=== PATIENT | male | born 1955 | race Caucasian/White ===

== ENCOUNTER 2017-11-14 12:41 | Inpatient (IN) | payer MEDICAID, OTHER ==
[~2017-11-14] VITALS: Ht 172.7 cm; Wt 62.6 kg
[2017-11-14] VITALS (7 sets, daily range): BP systolic 115–130; BP diastolic 65–76
[2017-11-14] MEDS ORDERED: SODIUM CHLORIDE 0.9% 500 ML IV ONE (14:25)
[2017-11-14 16:14] LABS: HEMATOCRIT. 21.7 % (42.0-52.0); HEMOGLOBIN. 7.1 g/dL (14.0-18.0); LYMPHOCYTES % 24.4 % (20.0-50.0); MEAN CORPUSCULAR HEMOGLOBIN 26.5 pg (28.0-32.0); MEAN CORPUSCULAR VOLUME 81.2 fL (80.0-94.0); MEAN PLATELET VOLUME 6.9 fl (7.4-10.4); MONOCYTES % 7.6 % (2.0-8.0); PLATELET 242 x1000/uL (130-400); RED BLOOD CELL COUNT 2.68 mill/uL (4.7-6.1); RED CELL DISTRIBUTION WIDTH 17.1 % (11.6-14.6)
[2017-11-14 16:19] LABS: INR 1.1; PARTIAL THROMBOPLASTIN TIME 34.5 sec (23.4-31.0); PROTHROMBIN TIME 11.5 sec (9.4-11.6)
[2017-11-14 16:33] LABS: CHLORIDE 96 mEq/L (98-107)
[2017-11-14] MEDS ORDERED: ACETAMINOPHEN 325MG TABLET PO PRN (17:45)
[2017-11-14] MEDS ORDERED: DOCUSATE SODIUM 100MG CAPSULE PO PRN (17:45)
[2017-11-14] MEDS ORDERED: IPRATROPIUM/ALBUTEROL 0.5-3(2.5)MG/3ML NEB INH PRN (17:45)
[2017-11-14] MEDS ORDERED: CLONIDINE 0.1MG TABLET PO PRN (17:45)
[2017-11-14] MEDS ORDERED: ONDANSETRON HCL 4MG/2ML VIAL IV PRN (17:45)
[2017-11-14] MEDS ORDERED: EPOETIN ALFA 10000UNITS/ML VIAL SUBCUT NR (18:00)
[2017-11-14] MEDS ORDERED: ONDANSETRON 4MG ODT PO PRN (18:45)
[2017-11-14] MEDS: HYDROCODONE/ACETAMINOPHEN 5/325MG TABLET PO PRN (19:59)
[2017-11-14 21:25] LABS: PHOSPHORUS 6.3 mg/dL (2.5-4.9)
[2017-11-14 23:47] LABS: CREATINE KINASE 62 IU/L (39-308)
[2017-11-14 23:49] LABS: CREATINE KINASE MB FRACTION 1.2 ng/mL (0.5-3.6)
[2017-11-15] MEDS: HYDROCODONE/ACETAMINOPHEN 5/325MG TABLET PO PRN ×4 (00:20→17:43)
[2017-11-15 04:00] VITALS: BP 118/71
[2017-11-15 04:19] LABS: *AMPHETAMINES SCREEN URINE NEGATIVE (NEGATIVE); *BENZODIAZEPINES SCREEN URINE NEGATIVE (NEGATIVE); *COCAINE SCREEN URINE PRESUMTIVE POSITIVE (NEGATIVE)
[2017-11-15 04:20] LABS: CANNABINOID URINE SCREEN NEGATIVE (NEGATIVE); METHADONE URINE SCREEN NEGATIVE (NEGATIVE); OPIATES URINE SCREEN PRESUMTIVE POSITIVE (NEGATIVE); PHENCYCLIDINE URINE SCREEN NEGATIVE (NEGATIVE)
[2017-11-15 04:22] LABS: *BARBITURATES SCREEN URINE NEGATIVE (NEGATIVE)
[2017-11-15 08:00] VITALS: BP 128/74
[2017-11-15] MEDS: SEVELAMER CARBONATE 800 MG TABLET PO SCH ×4 (08:26→17:45)
[2017-11-15 08:58] LABS: BASOPHILS % 1.6 % (0.0-2.0); EOSINOPHILS % 2.6 % (0.0-5.0); HEMATOCRIT. 27.1 % (42.0-52.0); LYMPHOCYTES % 19.8 % (20.0-50.0); MEAN CORPUSCULAR HEMOGLOBIN 26.7 pg (28.0-32.0); MEAN CORPUSCULAR VOLUME 80.1 fL (80.0-94.0); MEAN PLATELET VOLUME 6.7 fl (7.4-10.4); MONOCYTES % 8.9 % (2.0-8.0); NEUTROPHILS % 67.1 % (40.0-76.0); PLATELET 206 x1000/uL (130-400); RED BLOOD CELL COUNT 3.38 mill/uL (4.7-6.1); RED CELL DISTRIBUTION WIDTH 16.8 % (11.6-14.6)
[2017-11-15 09:27] LABS: CREATINE KINASE 50 IU/L (39-308); HDL CHOLESTEROL 42 mg/dL (40-59)
[2017-11-15 09:28] LABS: LDL CHOLESTEROL 75 mg/dL (5-100)
[2017-11-15 09:31] LABS: CREATINE KINASE MB FRACTION 1.1 ng/mL (0.5-3.6)
[2017-11-15] MEDS ORDERED: ACETAMINOPHEN 650MG/20.3ML UDC GT PRN (11:15)
[2017-11-15] MEDS ORDERED: IPRATROPIUM/ALBUTEROL 0.5-3(2.5)MG/3ML NEB INH PRN (11:15)
[2017-11-15] MEDS ORDERED: ONDANSETRON HCL 4MG/2ML VIAL IV PRN (11:15)
[2017-11-15] MEDS ORDERED: LORAZEPAM 0.5MG TABLET PO PRN (11:15)
[2017-11-15] MEDS ORDERED: ACETAMINOPHEN 650MG SUPP PR PRN (11:15)
[2017-11-15] MEDS ORDERED: GUAIFENESIN 200MG/10ML SUGAR FREE UDC PO PRN (11:15)
[2017-11-15] MEDS ORDERED: HYDROCODONE/ACETAMINOPHEN 10/325MG TABLET PO PRN (11:15)
[2017-11-15] MEDS ORDERED: DIPHENHYDRAMINE 50MG/ML VIAL IV PRN (11:15)
[2017-11-15] MEDS ORDERED: MAGNESIUM/ALUMINUM HYDROXIDE/SIMETHICONE 30ML UDC PO PRN (11:15)
[2017-11-15] MEDS ORDERED: ACETAMINOPHEN 325MG TABLET PO PRN (11:15)
[2017-11-15] MEDS ORDERED: DOCUSATE SODIUM 100MG CAPSULE PO PRN (11:15)
[2017-11-15] MEDS ORDERED: HYDROCODONE/ACETAMINOPHEN 5/325MG TABLET PO PRN (11:15)
[2017-11-15 12:13] VITALS: BP 130/71
[2017-11-15 16:00] VITALS: BP 136/73
[2017-11-15] MEDS ORDERED: LACTULOSE 20G/30ML UDC PO PRN (17:00)
[2017-11-15 17:51] LABS: CLARITY URINE CLEAR (CLEAR); COLOR URINE YELLOW (YELLOW); KETONES URINE NEGATIVE (NEGATIVE); LEUKOCYTE ESTERASE URINE NEGATIVE (NEGATIVE); NITRITE URINE NEGATIVE (NEGATIVE); OCCULT BLOOD URINE NEGATIVE (NEGATIVE); PH URINE >=9.0 (4.5-8.0); PROTEIN URINE 3+ (NEGATIVE); SPECIFIC GRAVITY URINE 1.011 (1.005-1.030); UROBILINOGEN URINE 0.2 E.U./dL (0.2-1.0)
[2017-11-15 18:27] LABS: FERRITIN 1094 ng/mL (22-322)
[2017-11-15 18:29] LABS: VITAMIN B12 SERUM 818 pg/mL (211-911)
[2017-11-15 18:39] LABS: HEPATITIS B SURFACE ANTIGEN NEGATIVE
[2017-11-15 19:07] LABS: HEPATITIS B CORE AB IGM NEGATIVE
[2017-11-15 19:08] LABS: HEPATITIS A AB IGM NEGATIVE (NEGATIVE)
[2017-11-15 20:00] VITALS: BP 128/64
[2017-11-16] VITALS: BP 111/80
[2017-11-16 04:00] VITALS: BP 132/72
[2017-11-16 07:53] VITALS: BP 136/69
[2017-11-16] MEDS: SEVELAMER CARBONATE 800 MG TABLET PO SCH ×2 (08:58→12:40)
[2017-11-16 12:00] VITALS: BP 116/76
[2017-11-16] MEDS ORDERED: HEPARIN SODIUM 1,000 UNIT/1ML VIAL IV NR (12:45)
[2017-11-17 08:11] LABS: ALPHA FETOPROTEIN TUMOR MARKER 3.2 ng/mL (0.0-8.3)
== END 2017-11-16 14:12 | disposition left against medical advice (07) | DRG 281 ==
LOC: ER 13:46 → ENRESERV 15:15 → 8WST 17:21 → EDBEDREQ 17:22
PROVIDERS: ADMIT Internal Medicine; ATTEND Internal Medicine
PROC: 5A1D70Z Performance of Urinary Filtration, Intermittent, Less than 6 Hours Per Day (ICD-10-PCS; principal; 2017-11-14)
PROC: 5A1D70Z Performance of Urinary Filtration, Intermittent, Less than 6 Hours Per Day (ICD-10-PCS; 2017-11-16)
DX: C22.8 Malignant neoplasm of liver, primary, unspecified as to type (principal); E46 Unspecified protein-calorie malnutrition; I12.0 Hypertensive chronic kidney disease with stage 5 chronic kidney disease or end stage renal disease; E87.1 Hypo-osmolality and hyponatremia; N18.6 End stage renal disease; E83.42 Hypomagnesemia; D64.9 Anemia, unspecified; Z53.21 Procedure and treatment not carried out due to patient leaving prior to being seen by health care provider; B19.20 Unspecified viral hepatitis C without hepatic coma; F10.10 Alcohol abuse, uncomplicated; F14.90 Cocaine use, unspecified, uncomplicated; F17.210 Nicotine dependence, cigarettes, uncomplicated; Z59.0 Homelessness; Z99.2 Dependence on renal dialysis; Z88.0 Allergy status to penicillin; Z68.21 Body mass index [BMI] 21.0-21.9, adult
CPT/HCPCS: 36415; 71045; 74176; 76700; 80048; 80061; 80076; 80305; 81003; 82105; 82270; 82378; 82550; 82553; 82607; 82728; 82746; 83540; 83550; 83735; 84100; 84443; 84484; 85025; 85044; 85610; 85730; 86301; 86705; 86709; 86803; 86850; 86900; 86920; 87040; 87340; 93005; 99285; J0885; J1644; J7030; J7040; J7050; P9016